=== PATIENT | male | born 1965 | race Caucasian/White ===

== ENCOUNTER 2021-03-01 17:40 | Inpatient (IN) | payer OTHER ==
[2021-03-01 18:20] VITALS: BMI 22.2
[2021-03-01] MEDS ORDERED: ONDANSETRON *ODT* 4 MG TABLET SL PRN (18:59)
[2021-03-01] MEDS ORDERED: MAGNESIUM CITRATE 300 ML BOTTLE PO PRN (18:59)
[2021-03-01] MEDS ORDERED: DICYCLOMINE HCL 10 MG CAPSULE PO PRN (18:59)
[2021-03-01] MEDS ORDERED: MAGNESIUM HYDROX 2400MG/30ML ORAL SUSPENSION 30 ML CUP PO PRN (18:59)
[2021-03-01] MEDS ORDERED: BISMUTH SUBSALICYLATE 524 MG/30 ML PO PRN (18:59)
[2021-03-01] MEDS ORDERED: ACETAMINOPHEN 325 MG TABLET (FP) PO PRN ×2 (18:59)
[2021-03-01] MEDS ORDERED: IBUPROFEN 400 MG TABLET (FP) PO PRN (18:59)
[2021-03-01] MEDS ORDERED: MAG HYDROX/AL HYDROX/SIMETH 30 ML UNIT-DOSE CUP PO PRN (18:59)
[2021-03-01] MEDS ORDERED: MENTHOL/PHENOL 1 EACH UD MM PRN (18:59)
[2021-03-01] MEDS ORDERED: chlordiazePOXIDE HCL 25 MG CAPSULE PO ONE (19:00)
[2021-03-01] MEDS ORDERED: chlordiazePOXIDE HCL 25 MG CAPSULE PO PRN (19:00)
[2021-03-01] MEDS: THIAMINE HCL 100 MG TABLET (FP) PO SCH (23:15)
[2021-03-01] MEDS: ATORVASTATIN CA 40 MG TABLET (FP) PO SCH (23:15)
[2021-03-01] MEDS: hydrOXYzine PAMOATE 25 MG CAPSULE (FP) PO PRN (23:15)
[2021-03-01] MEDS: MELATONIN 5 MG TABLETS PO SCH (23:15)
[2021-03-02] MEDS: chlordiazePOXIDE HCL 25 MG CAPSULE PO SCH ×5 (00:47→22:30)
[2021-03-02] MEDS: LOSARTAN POTASSIUM 50 MG TABLET PO SCH (10:05)
[2021-03-02] MEDS: ASPIRIN 81 MG CHEWABLE TABLETS PO SCH (10:05)
[2021-03-02] MEDS: DOXYCYCLINE HYCLATE 100 MG TABLET PO SCH (10:05)
[2021-03-02] MEDS: PRENATAL VITAMINS W/ FOLIC ACID TABLET (FP) PO SCH (10:09)
[2021-03-02] MEDS: ATORVASTATIN CA 40 MG TABLET (FP) PO SCH (22:30)
[2021-03-02] MEDS: THIAMINE HCL 100 MG TABLET (FP) PO SCH (22:30)
[2021-03-02] MEDS: MELATONIN 5 MG TABLETS PO SCH (22:31)
[2021-03-03] MEDS: chlordiazePOXIDE HCL 10 MG CAPSULE PO SCH ×4 (05:24→22:47)
[2021-03-03] MEDS: PRENATAL VITAMINS W/ FOLIC ACID TABLET (FP) PO SCH (10:16)
[2021-03-03] MEDS: METHOCARBAMOL 500 MG TABLET PO PRN (10:17)
[2021-03-03] MEDS: LOSARTAN POTASSIUM 50 MG TABLET PO SCH (10:17)
[2021-03-03] MEDS: DOXYCYCLINE HYCLATE 100 MG TABLET PO SCH (10:17)
[2021-03-03] MEDS: hydrOXYzine PAMOATE 25 MG CAPSULE (FP) PO PRN (10:17)
[2021-03-03] MEDS: ASPIRIN 81 MG CHEWABLE TABLETS PO SCH (10:17)
[2021-03-03 11:12] LABS: HEMATOCRIT 34.7 % (35.4-49); HEMOGLOBIN 11.6 GM/dL (11.7-16.9); MCH 33.6 pg (25.7-33.7); MCHC 33.3 g/dl (32.0-35.9); MEAN CELL VOLUME 100.9 fl (80-96); MEAN PLT VOLUME 9.9 fl (7.5-11.1); PLATELET COUNT 140 10^3/uL (134-434); RBC 3.44 M/mm3 (4.00-5.60); RDW 14.1 % (11.9-15.9); WHITE BLOOD COUNT 4.4 K/mm3 (4.0-10.0)
[2021-03-03 11:19] LABS: BLOOD UREA NITROGEN 8.9 mg/dL (7-18)
[2021-03-03 11:21] LABS: CALCIUM 8.9 mg/dL (8.5-10.1)
[2021-03-03 11:22] LABS: ALBUMIN 3.1 g/dl (3.4-5.0); CREATININE 0.8 mg/dL (0.55-1.3)
[2021-03-03 11:24] LABS: TOT PROT 5.5 g/dl (6.4-8.2)
[2021-03-03] MEDS ORDERED: POTASSIUM CHLORIDE ORAL LIQUID 20 MEQ/15 ML PO ONE ×2 (14:30→18:30)
[2021-03-03] MEDS: THIAMINE HCL 100 MG TABLET (FP) PO SCH (22:47)
[2021-03-03] MEDS: MELATONIN 5 MG TABLETS PO SCH (22:47)
[2021-03-03] MEDS: ATORVASTATIN CA 40 MG TABLET (FP) PO SCH (22:47)
[2021-03-04] MEDS: chlordiazePOXIDE HCL 10 MG CAPSULE PO SCH ×2 (05:37→17:48)
[2021-03-04] MEDS: chlordiazePOXIDE HCL 10 MG CAPSULE PO PRN ×2 (10:02→20:29)
[2021-03-04] MEDS: PRENATAL VITAMINS W/ FOLIC ACID TABLET (FP) PO SCH (10:02)
[2021-03-04] MEDS: DOXYCYCLINE HYCLATE 100 MG TABLET PO SCH (10:02)
[2021-03-04] MEDS: ASPIRIN 81 MG CHEWABLE TABLETS PO SCH (10:02)
[2021-03-04] MEDS: LOSARTAN POTASSIUM 50 MG TABLET PO SCH (10:02)
[2021-03-04] MEDS: METHOCARBAMOL 500 MG TABLET PO PRN (22:11)
[2021-03-04] MEDS: MELATONIN 5 MG TABLETS PO SCH (22:11)
[2021-03-04] MEDS: THIAMINE HCL 100 MG TABLET (FP) PO SCH (22:11)
[2021-03-04] MEDS: ATORVASTATIN CA 40 MG TABLET (FP) PO SCH (22:11)
[2021-03-04] MEDS ORDERED: LISINOPRIL 5 MG TABLET PO ONE (23:03)
[2021-03-05] MEDS ORDERED: chlordiazePOXIDE HCL 10 MG CAPSULE PO ONE (05:00)
[2021-03-05] MEDS: hydrOXYzine PAMOATE 25 MG CAPSULE (FP) PO PRN ×2 (05:16→22:23)
[2021-03-05] MEDS: LOSARTAN POTASSIUM 50 MG TABLET PO SCH (09:42)
[2021-03-05] MEDS: DOXYCYCLINE HYCLATE 100 MG TABLET PO SCH (09:42)
[2021-03-05] MEDS: ASPIRIN 81 MG CHEWABLE TABLETS PO SCH (09:42)
[2021-03-05] MEDS: PRENATAL VITAMINS W/ FOLIC ACID TABLET (FP) PO SCH (09:43)
[2021-03-05] MEDS: THIAMINE HCL 100 MG TABLET (FP) PO SCH (22:21)
[2021-03-05] MEDS: MELATONIN 5 MG TABLETS PO SCH (22:21)
[2021-03-05] MEDS: ATORVASTATIN CA 40 MG TABLET (FP) PO SCH (22:21)
[2021-03-06 09:03] VITALS: BP 132/91; PULSE 79; TEMP 97.4
== END 2021-03-06 09:13 | disposition home or self-care (01) | DRG 897 ==
LOC: YASAS 17:40 → Y6N 21:11
PROVIDERS: ADMIT Allergy & Immunology; ATTEND Allergy & Immunology
PROC: HZ2ZZZZ Detoxification Services for Substance Abuse Treatment (ICD-10-PCS; principal; 2021-03-01)
DX: F10.230 Alcohol dependence with withdrawal, uncomplicated (principal); I10 Essential (primary) hypertension; E78.1 Pure hyperglyceridemia; Z86.16 Personal history of COVID-19; Z87.891 Personal history of nicotine dependence; Z95.4 Presence of other heart-valve replacement
CPT/HCPCS: 36415; 80053; 84132; 85027; 86780; C9803; U0003; U0005